=== PATIENT | female | born 1960 | race Caucasian/White ===

== ENCOUNTER → 2017-07-04 12:24 | Emergency (ER) | payer BC ==
[~2017-07-04 12:24] MED LIST: Ketorolac INJ* 30 MG/ML 1 ML VIAL IV ONE
--- NOTE | 2017-07-04 14:13 | RAD ---
INDICATION: Chest pain COMPARISON: None TECHNIQUE: An AP portable view obtained at 1357 hours is submitted. FINDINGS: Bones/Soft Tissues: There are no acute bony findings. Cardiomediastinal: The cardiomediastinal silhouette is normal. Lungs: There is airspace disease in left lung base consistent with infiltrate or atelectasis. Pleura: Suspect small left-sided effusion. Other: None IMPRESSION: AIRSPACE DISEASE LEFT LUNG BASE
[2017-07-04 14:26] LABS: Hematocrit 41 % (35-47); Mean Corpuscular HGB Conc 34 g/dl (31-36); Mean Corpuscular Hemoglobin 30 pg (27-31); Mean Corpuscular Volume 87 fL (80-97); Mean Platelet Volume 7 um3 (7.4-10.4); Red Cell Distribution Width 13 % (10.5-15); White Blood Count 12.3 10^3/ul (3.5-10.8)
[2017-07-04 14:38] LABS: Albumin 4.3 g/dL (3.2-5.2); BUN/Creatinine Ratio 12.5 (8-20); Calcium 9.3 mg/dL (8.6-10.3); EGFR African American 122.6 (>60); EGFR Non-African American 95.3 (>60); Globulin 2.9 g/dL (2-4); Potassium 3.4 mmol/L (3.5-5.0); Total Bilirubin 0.5 mg/dL (0.2-1.0); Total Protein 7.2 g/dL (6.4-8.9)
--- NOTE | 2017-07-04 16:37 | ED ---
Isael [place] Gabriel, scribed for Gerson oRberts MD on 07/04/17 at 1338 . HPI Chest Pain - HPI Summary HPI Summary: This patient is a 56 year old F presenting to [facility] with a chief complaint of CP since yesterday afternoon. She states the pain in her chest felt like heartburn but different. The patient rates the pain 8/10 in severity. She describes the pain as tight, achy, constant, and radiating into her back. Symptoms aggravated by lying flat and exertion. Symptoms alleviated by nothing. Pt has taken muscle relaxers and ibuprofen with no relief. Patient reports pain on inspiration, SOB, nausea, and diaphoresis. Patient denies trauma, cough, and edema. - History of Current Complaint Chief Complaint: EDChestPainROMI Time Seen by Provider: 07/04/17 13:23 Hx Obtained From: Patient Onset/Duration: Still Present Timing: Constant Current Severity: Moderate Pain Intensity: 8 Pain Scale Used: 0-10 Numeric Chest Pain Radiates: Yes Chest Pain Radiates To:: Back Aggravating Factor(s): Exertion, Position - lying Alleviating Factor(s): Nothing - Allergy/Home Medications Allergies/Adverse Reactions: Allergies Allergy/AdvReac Type Severity Reaction Status Date / Time No Known Allergies Allergy Verified 07/04/17 12:35 PMH/Surg Hx/FS Hx/Imm Hx Previously Healthy: No Endocrine/Hematology History: Denies: Hx Diabetes Cardiovascular History: Denies: Hx Coronary Artery Disease - Cancer History Hx Chemotherapy: No Hx Radiation Therapy: No Infectious Disease History: No Infectious Disease History: Denies: Traveled Outside the [place] in Last 30 Days - Family History Known Family History: Positive: Cardiac Disease, Hypertension, Diabetes, Other - hyperlipidemia - Social History Occupation: Employed Full-time Alcohol Use: None Substance Use Type: Reports: None Smoking Status (MU): Unknown if Ever Smoked Review of Systems Constitutional: Negative - trauma Positive: Skin Diaphoresis Positive: Chest Pain Positive: Shortness Of Breath, Other - pain on inspiration. Negative: Cough Positive: Nausea Negative: Edema All Other Systems Reviewed And Are Negative: Yes Physical Exam - Summary Physical Exam Summary: The patient is well-nourished in no acute distress and in no acute pain. The skin is warm and dry and skin color reflects adequate perfusion. HEENT: ~The head is normocephalic and atraumatic. The pupils are equal and reactive. The conjunctivae are clear and without drainage. ~Nares are patent and without drainage. ~Mouth reveals moist mucous membranes and the throat is without erythema and exudate. ~The external ears are intact. The ear canals are patent and without drainage. The tympanic membranes are intact. Neck is supple with full range of motion and non-tender. There are no carotid bruits. ~There is no neck vein distension. Respiratory: Chest is non-tender. ~Lungs are clear to auscultation and breath sounds are symmetrical and equal. Cardiovascular: Heart is regular rate and rhythm. ~There is no murmur or rub auscultated. ~~There is no peripheral edema and pulses are symmetrical and equal. Abdomen: The abdomen is soft and non-tender. ~There are normal bowel sounds heard in all four quadrants and there is no organomegaly palpated. Musculoskeletal: There is no back pain noted. ~Extremities are non-tender with full range of motion. ~There is good capillary refill. ~There is no peripheral edema or calf tenderness elicited. Neurological: Patient is alert and oriented to person, place and time. ~The patient has symmetrical motor strength in all four extremities. ~Cranial nerves are grossly intact. Deep tendon reflexes are symmetrical and equal in all four extremities. Psychiatric: The patient has an appropriate affect and does not exhibit any anxiety or depression. Triage Information Reviewed: Yes Vital Signs On Initial Exam: Initial Vitals Temp Pulse Resp BP Pulse Ox 99.8 F 104 18 176/93 100 07/04/17 12:32 07/04/17 12:32 07/04/17 12:32 07/04/17 12:32 07/04/17 12:32 Vital Signs Reviewed: Yes - Bock Coma Scale Coma Scale Total: 15 Diagnostics - Vital Signs Vital Signs Temp Pulse Resp BP Pulse Ox 07/04/17 12:32 99.8 F 104 18 176/93 100 - Laboratory Lab Results: Lab Results 07/04/17 07/04/17 07/04/17 Range/Units 14:14 14:14 14:14 WBC 12.3 H (3.5-10.8) 10^3/ul RBC 4.70 (4.0-5.4) 10^6/ul Hgb 14.0 (12.0-16.0) g/dl Hct 41 (35-47) % MCV 87 (80-97) fL MCH 30 (27-31) pg MCHC 34 (31-36) g/dl RDW 13 (10.5-15) % Plt Count 277 (150-450) 10^3/ul MPV 7 L (7.4-10.4) um3 Neut % (Auto) 81.1 (38-83) % Lymph % (Auto) 11.5 L (25-47) % Patrick % (Auto) 7.1 (1-9) % Eos % (Auto) 0.1 (0-6) % Baso % (Auto) 0.2 (0-2) % Absolute Neuts (auto) 10.0 H (1.5-7.7) 10^3/ul Absolute Lymphs (auto) 1.4 (1.0-4.8) 10^3/ul Absolute Monos (auto) 0.9 H (0-0.8) 10^3/ul Absolute Eos (auto) 0 (0-0.6) 10^3/ul Absolute Basos (auto) 0 (0-0.2) 10^3/ul Absolute Nucleated RBC 0.01 10^3/ul Nucleated RBC % 0.1 INR (Anticoag Therapy) 0.96 (0.89-1.11) D-Dimer, Quantitative < 200 (Less Than 230) ng/mL Sodium 135 (133-145) mmol/L Potassium 3.4 L (3.5-5.0) mmol/L Chloride 102 (101-111) mmol/L Carbon Dioxide 26 (22-32) mmol/L Anion Gap 7 (2-11) mmol/L BUN 8 (6-24) mg/dL Creatinine 0.64 (0.51-0.95) mg/dL Est GFR ( Amer) 122.6 (>60) Est GFR (Non-Af Amer) 95.3 (>60) BUN/Creatinine Ratio 12.5 (8-20) Glucose 110 H (70-100) mg/dL Lactic Acid (0.5-2.0) mmol/L Calcium 9.3 (8.6-10.3) mg/dL Total Bilirubin 0.50 (0.2-1.0) mg/dL AST 18 (13-39) U/L ALT 18 (7-52) U/L Alkaline Phosphatase 85 (34-104) U/L Troponin I 0.00 (<0.04) ng/mL Total Protein 7.2 (6.4-8.9) g/dL Albumin 4.3 (3.2-5.2) g/dL Globulin 2.9 (2-4) g/dL Albumin/Globulin Ratio 1.5 (1-3) 11/15/17 Range/Units 14:14 WBC (3.5-10.8) 10^3/ul RBC (4.0-5.4) 10^6/ul Hgb (12.0-16.0) g/dl Hct (35-47) % MCV (80-97) fL MCH (27-31) pg MCHC (31-36) g/dl RDW (10.5-15) % Plt Count (150-450) 10^3/ul MPV (7.4-10.4) um3 Neut % (Auto) (38-83) % Lymph % (Auto) (25-47) % Patrick % (Auto) (1-9) % Eos % (Auto) (0-6) % Baso % (Auto) (0-2) % Absolute Neuts (auto) (1.5-7.7) 10^3/ul Absolute Lymphs (auto) (1.0-4.8) 10^3/ul Absolute Monos (auto) (0-0.8) 10^3/ul Absolute Eos (auto) (0-0.6) 10^3/ul Absolute Basos (auto) (0-0.2) 10^3/ul Absolute Nucleated RBC 10^3/ul Nucleated RBC % INR (Anticoag Therapy) (0.89-1.11) D-Dimer, Quantitative (Less Than 230) ng/mL Sodium (133-145) mmol/L Potassium (3.5-5.0) mmol/L Chloride (101-111) mmol/L Carbon Dioxide (22-32) mmol/L Anion Gap (2-11) mmol/L BUN (6-24) mg/dL Creatinine (0.51-0.95) mg/dL Est GFR ( Amer) (>60) Est GFR (Non-Af Amer) (>60) BUN/Creatinine Ratio (8-20) Glucose (70-100) mg/dL Lactic Acid 1.0 (0.5-2.0) mmol/L Calcium (8.6-10.3) mg/dL Total Bilirubin (0.2-1.0) mg/dL AST (13-39) U/L ALT (7-52) U/L Alkaline Phosphatase (34-104) U/L Troponin I (<0.04) ng/mL Total Protein (6.4-8.9) g/dL Albumin (3.2-5.2) g/dL Globulin (2-4) g/dL Albumin/Globulin Ratio (1-3) Result Diagrams: 07/04/17 14:14 07/04/17 14:14 Lab Statement: Any lab studies that have been ordered have been reviewed, and results considered in the medical decision making process. - Radiology CXR Radiology Interpretation Completed By: Radiologist - AIRSPACE DISEASE LEFT LUNG BASE. ED physician has reviewed this radiology report and agrees - EKG 12:43 Cardiac Rate: NL EKG Rhythm: Sinus Rhythm - 97 BPM EKG Interpretation: Horizontal axis Chest Pain Course/Dx - Course Course Of Treatment: Ms. Angel presented C/O pleuritic epigastric CP which started yesterday. She has had flashes of diaphoresis and chills. She was found to have a borderline tachycardia, infiltrate in the LLL on CXR and a slight leukocytosis. She has a coworker recently diagnosed with pneumonia. - Diagnoses Provider Diagnoses: PNA (pneumonia) Discharge - Discharge Plan Condition: Stable Disposition: HOME Patient Education Materials: Pneumonitis (ED) Forms: *Work Release Referrals: Deana Martinez MD [Primary Care Provider] - Additional Instructions: Follow up with your primary care provider in 3-4 days. RETURN TO THE EMERGENCY DEPARTMENT FOR CHANGING OR WORSENING SYMPTOMS. The documentation as recorded by the Isael lucas Gabriel accurately reflects the service I personally performed and the decisions made by , Gerson Roberts MD.
[2017-07-04 16:42] VITALS: BP 131/86
== END | disposition home or self-care (01) ==
LOC: ED 12:24
DX: J18.9 Pneumonia, unspecified organism (principal); R07.9 Chest pain, unspecified; R06.02 Shortness of breath; R11.0 Nausea
CPT/HCPCS: 36415; 71010; 80053; 83605; 84484; 85025; 85379; 85610; 93005; 96374; 99282; J1885

== ENCOUNTER 2019-03-07 14:37 | Emergency (ER) | payer BC ==
[2019-03-07 14:59] VITALS: BP 137/87
--- NOTE | 2019-03-07 16:33 | UC ---
Knee Pain HPI - HPI Summary HPI Summary: Complaining of worsening pain in her right knee over the past month or so. States that it is clicking and occasionally giving out on her. No recent injury but states she did fall about 5 months ago. No broken bones. No numbness or tingling. Mild swelling but no redness or heat. - History of Current Complaint Chief Complaint: UCLowerExtremity Stated Complaint: RT KNEE PAIN Time Seen by Provider: 03/07/19 15:55 Hx Obtained From: Patient Onset/Duration: Gradual Onset, Lasting Weeks, Still Present Severity Initially: Moderate Severity Currently: Moderate Pain Intensity: 1 Pain Scale Used: 0-10 Numeric Character: Sharp Aggravating Factor(s): Weight Bearing Alleviating Factor(s): Rest Associated Signs And Symptoms: Positive: Swelling. Negative: Redness, Bruising , Numbness, Tingling Able to Bear Weight: Yes - Allergies/Home Medications Allergies/Adverse Reactions: Allergies Allergy/AdvReac Type Severity Reaction Status Date / Time No Known Allergies Allergy Verified 03/07/19 14:55 Home Medications: Home Medications Ascorbic Acid/Multivit-Min [Emergen-C 1,000 mg Packet] 1 packet PO DAILY [History Confirmed 03/07/19] Ibuprofen 200 mg PO ONCE PRN 03/07/19 [History Confirmed 03/07/19] Peppermint Oil [Peppermint] 1 dose PO QPM PRN 03/07/19 [History Confirmed ] PMH/Surg Hx/FS Hx/Imm Hx Other Cancer History: SKIN CANCER - Surgical History Surgical History: Yes Surgery Procedure, Year, and Place: Moh's procedure under right eye-2012 [place]. Bladder sling-[place]. Partial Hysterectomy-1984. Colonoscopy - Family History Known Family History: Positive: Cardiac Disease, Hypertension, Diabetes, Other - hyperlipidemia - Social History Alcohol Use: None Substance Use Type: None Smoking Status (MU): Never Smoked Tobacco Review of Systems All Other Systems Reviewed And Are Negative: Yes Constitutional: Positive: Negative Skin: Positive: Negative Respiratory: Positive: Negative Cardiovascular: Positive: Negative Gastrointestinal: Positive: Negative Musculoskeletal: Positive: Arthralgia, Edema. Negative: Decreased ROM Physical Exam Triage Information Reviewed: Yes Appearance: Well-Appearing, No Pain Distress, Well-Nourished Vital Signs: Initial Vital Signs Temp 98 F 03/07/19 14:51 Pulse 68 07/19/19 14:51 Resp 18 03/07/19 14:51 BP 137/87 03/07/19 14:51 Pulse Ox 98 03/07/19 14:51 Vital Signs Reviewed: Yes Eyes: Positive: Conjunctiva Clear ENT: Positive: Hearing grossly normal Neck: Positive: Supple Respiratory: Positive: No respiratory distress, No accessory muscle use Cardiovascular: Positive: Pulses Normal Abdomen Description: Positive: Soft Musculoskeletal: Positive: ROM Intact, No Edema, Other: - RIGHT KNEE: NO JOINT LINE TENDERNESS OR TENDERNESS OVER ANY BONY PROMINENCES. MCL AND LCL INTACT TO STRESS TESTING. NEG LACHMANS. NEG DRAWERS SIGNS. NEG MCMURRAYS. NO TENDERNESS OVER PATELLAR LIGAMENT OR QUADRICEPS TENDON. Neurological: Positive: Alert Psychological: Positive: Age Appropriate Behavior Skin: Negative: Rashes Diagnostics - Radiology RIGHT KNEE XRAYS Radiology Interpretation Completed By: Radiologist Summary of Radiographic Findings: Osteoarthritis most prominent at the patellofemoral joint where it is moderately severe. Minimal joint effusion. Knee Pain Course/Dx - Course Course Of Treatment: X-RAY SHOWS SOME WEAR AND TEAR ARTHRITIS BUT NO ACUTE INJURY. PATIENT WOULD LIKELY BENEFIT FROM MORE ADVANCED IMAGING SUCH AN MRI. KNEE IMMOBILIZER PROVIDED FOR SOME COMPRESSION AND SUPPORT. INSTRUCTED HER TO BE SURE TO GO THROUGH SLOW STRETCHING AND RANGE OF MOTION EXERCISES DAILY SO SHE DOES NOT STIFFEN UP AND MAKE THE DISCOMFORT WORSE. [id number] MEDICATIONS NEEDED FOR DISCOMFORT. SHE WILL CALL ORTHOPEDICS TO SCHEDULE A FOLLOW-UP APPOINTMENT WITHIN THE WEEK. - Differential Dx/Diagnosis Provider Diagnosis: Internal derangement of right knee Discharge - Sign-Out/Discharge Documenting (check all that apply): Patient Departure All imaging exams completed and their final reports reviewed: Yes - Discharge Plan Condition: Stable Disposition: HOME Patient Education Materials: Knee Pain (ED) Referrals: Jae Bryant MD [Medical Doctor] - 1 Week Deana Martinez MD [Primary Care Provider] - If Needed Additional Instructions: XRAY TODAY SHOWS OSTEOARTHRITIS MOST PROMINENT AT THE PATELLOFEMORAL JOINT WHERE IT IS MODERATELY SEVERE AND A MINIMAL JOINT EFFUSION. FOLLOW-UP WITH YOUR PCP OR ORTHO. YOU MAY BENEFIT FROM MORE ADVANCED IMAGING. OTC IBUPROFEN OR ALEVE NEEDED FOR DISCOMFORT. REST, ICE, ELEVATE. KNEE IMMOBILIZER NEEDED FOR COMPRESSION AND SUPPORT. BE SURE TO GO THROUGH SLOW RANGE OF MOTION AND STRETCHING EXERCISES DAILY YOU ARE ABLE TO PREVENT STIFFENING UP AND MAKING THE DISCOMFORT WORSE. SUSPECTED INTERNAL KNEE INJURY: The examiner of your injured knee suspects an internal injury to the cartilage or internal ligaments. This must be further investigated by an network desktop support specialist. The knee should be protected, ice packed, and elevated while awaiting your follow-up exam by the orthopedist. If there is severe swelling, severe pain, or any new symptoms while awaiting your exam, you should call the orthopedist. (If he/she is unavailable, call us or return for re-examination.) - Billing Disposition and Condition Condition: STABLE Disposition: Home
== END 2019-03-07 16:48 | disposition home or self-care (01) ==
LOC: UCEAST 14:37
DX: M23.91 Unspecified internal derangement of right knee (principal)
CPT/HCPCS: 99212; G0463

== ENCOUNTER 2019-10-28 10:36 | Emergency (ER) | payer BC ==
--- NOTE | 2019-10-28 10:57 | ED ---
Adult Trauma - HPI Summary HPI Summary: This patient is a 58 y/o female presenting to [facility] referred by [facility] for upper back pain s/p fall this morning. Patient reports she was walking down a walkway when she slipped and fell straight on her back. She notes her feet went up and struck her upper back. Denies head strike or LOC. Patient went to [facility] today and had x-rays done that resulted in bony fractures of thorax. 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 She denies any neck pain, urinary or fecal dysfunction, numbness, tingling, or weakness in upper extremities or lower extremities. Patient currently rates her upper back pain 5/ 10 in severity. Denies any PMHx. Denies tobacco, drug, or alcohol use. Home Medications Medication Instructions Recorded Confirmed Type Ascorbic Acid/Multivit-Min 1 packet PO DAILY 03/07/19 10/28/19 History [Emergen-C 1,000 mg Packet] - History of Current Complaint Chief Complaint: EDFall Stated Complaint: BROKE VERTEBRAE PER PT Hx Obtained From: Patient Mechanism of Injury: Fall Ambulatory at the Scene: Yes Loss of Consciousness: no loss of consciousness Onset/Duration: Started Hours Ago, Still Present Onset of Pain: Hours Current Severity: Moderate Pain Intensity: 5 Pain Scale Used: 0-10 Numeric Location: Back - upper Aggravating Factor(s): Nothing Alleviating Factor(s): Nothing Associated Signs & Symptoms: Negative: Fever, Loss of Consciousness, Other: - NEGATIVE: urinary or fecal dysfunction, numbness, tingling or weakness in UE or LE. - Allergy/Home Medications Allergies/Adverse Reactions: Allergies Allergy/AdvReac Type Severity Reaction Status Date / Time No Known Allergies Allergy Verified 10/28/19 10:47 Home Medications: Home Medications Ascorbic Acid/Multivit-Min [Emergen-C 1,000 mg Packet] 1 packet PO DAILY [History Confirmed 10/28/19] HYDROcodone/ACETAMIN 5-325 MG* [Wellesley 5-325 TAB*] 1 tab PO Q6H PRN #10 tab MDD 4 10/28/19 [Rx] Ibuprofen TAB* [Motrin TAB* 600 MG] 600 mg PO Q8H PRN #30 tab 10/28/19 [Rx] PMH/Surg Hx/FS Hx/Imm Hx Endocrine/Hematology History: Denies: Hx Diabetes Cardiovascular History: Denies: Hx Coronary Artery Disease, Other Cardiovascular Problems/Disorders Respiratory History: Denies: Other Respiratory Problems/Disorders GI History: Reports: Hx Gastroesophageal Reflux Disease - no meds at present, drinks peppermint water, Hx Hiatal Hernia Denies: Other GI Disorders History: Reports: Other Problems/Disorders - Urinary incontinence, bladder sling 2014, History of UTIs-none recent Musculoskeletal History: Denies: Other Musculoskeletal History Sensory History: Denies: Hx Cataracts, Hx Contacts or Glasses, Hx Glaucoma, Hx Hearing Aid Opthamlomology History: Denies: Hx Cataracts, Hx Contacts or Glasses, Hx Glaucoma Neurological History: Denies: Other Neuro Impairments/Disorders - Cancer History Cancer Type, Location and Year: skin ca Hx Chemotherapy: No Hx Radiation Therapy: No - Surgical History Surgical History: Yes Surgery Procedure, Year, and Place: Moh's procedure under right eye-2012 [place]. Bladder sling-[place] in 1994. Partial Hysterectomy-1984. Colonoscopy Hx Anesthesia Reactions: Yes - Nausea and acid relux Infectious Disease History: No Infectious Disease History: Denies: Traveled Outside the [place] in Last 30 Days - Family History Known Family History: Positive: Cardiac Disease, Hypertension, Diabetes, Other - hyperlipidemia - Social History Alcohol Use: None Substance Use Type: Reports: None Smoking Status (MU): Never Smoked Tobacco Review of Systems Negative: Fever Negative: incontinence - urinary or fecal Musculoskeletal: Other - POSITIVE: upper back pain Negative: Other - NEGATIVE: neck pain Negative: Weakness, Paresthesia, Numbness All Other Systems Reviewed And Are Negative: Yes Physical Exam - Summary Physical Exam Summary: VITAL SIGNS: Reviewed. GENERAL: Patient is a well-developed and nourished female who is lying comfortable in the stretcher. Patient is not in any acute respiratory distress. HEAD AND FACE: No signs of trauma. No ecchymosis, hematomas or skull depressions. No sinus tenderness. EYES: PERRLA, EOMI x 2, No injected conjunctiva, no nystagmus. EARS: Hearing grossly intact. Ear canals and tympanic membranes are within normal limits. MOUTH: Oropharynx within normal limits. NECK: Supple, trachea is midline, no adenopathy, no JVD, no carotid bruit, no c- spine tenderness, neck with full ROM. CHEST: Symmetric, no tenderness at palpation LUNGS: Clear to auscultation bilaterally. No wheezing or crackles. CVS: Regular rate and rhythm, S1 and S2 present, no murmurs or gallops appreciated. ABDOMEN: Soft, non-tender. No signs of distention. No rebound, no guarding, and no masses palpated. Bowel sounds are normal. MSK: FROM in all major joints, no edema, no cyanosis or clubbing. Positive tenderness in the thoracic spine. NEURO: Alert and oriented x 3. No acute neurological deficits. Speech is normal and follows commands. SKIN: Dry and warm Triage Information Reviewed: Yes Vital Signs On Initial Exam: Initial Vitals Temp Pulse Resp BP Pulse Ox 98.0 F 72 16 158/95 99 10/28/19 10:42 10/28/19 10:42 10/28/19 10:42 10/28/19 10:42 10/28/19 10:42 Vital Signs Reviewed: Yes Procedures - Sedation Patient Received Moderate/Deep Sedation with Procedure: No Diagnostics - Vital Signs Vital Signs Temp Pulse Resp BP Pulse Ox 10/28/19 10:42 98.0 F 72 16 158/95 99 - Laboratory Lab Statement: Any lab studies that have been ordered have been reviewed, and results considered in the medical decision making process. - Radiology Thoracic spine XR Radiology Interpretation Completed By: Radiologist Summary of Radiographic Findings: IMPRESSION: 1. Osteopenia. 2. Scoliosis. 3. Degenerative disc disease and osteoarthritis. 4. Chronic compression deformity of T12. Dr. Pepe has reviewed this report. Lumbar spine XR Radiology Interpretation Completed By: Radiologist Summary of Radiographic Findings: IMPRESSION: 1. Osteopenia. 2. Scoliosis. 3. Degenerative disc disease and osteoarthritis. 4. Chronic compression deformity of T12. Dr. Pepe has reviewed this report. Re-Evaluation - Re-Evaluation First Eval Re-Evaluation Time: 12:14 Comment: Reviewed results with patient. She will be discharged home. Adult Trauma Course/Dx - Course Assessment/Plan: This patient is a 58 y/o female presenting to [facility] referred by [facility] for upper back pain s/p fall this morning. Patient reports she was walking down a walkway when she slipped and fell straight on her back. She notes her feet went up and struck her upper back. Denies head strike or LOC. Patient went to [facility] today and had x-rays done that resulted in bony fractures of thorax. 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 She denies any neck pain, urinary or fecal dysfunction, numbness, tingling, or weakness in upper extremities or lower extremities. Patient currently rates her upper back pain 5/10 in severity. Denies any PMHx. Denies tobacco, drug, or alcohol use. Denies any urinary or fecal dysfunction. Denies any upper or LE numbness or tingling. L and T spine x-ray IMPRESSION: 1. OSTEOPENIA. 2. SCOLIOSIS. 3. DEGENERATIVE DISC DISEASE AND OSTEOARTHRITIS. 4. CHRONIC COMPRESSION DEFORMITY OF T12. X-ray report shows that the patient has a chronic T12 vertebral fracture. There is no acute fracture. Therefore the patient will be given ibuprofen and Wellesley for the pain. Patient will be discharged home with follow-up from her primary care physician. At this point I discussed all the findings and test results with the patient. Patient was instructed to return to the emergency room immediately if any of the symptoms return or worsen. Patient understands and agrees. Patient is able to ambulate freely w/o aid or limp in the ER. Plan of care was discussed with the patient and patient understands and agrees. All questions were answered at patient satisfaction. There were no further complaints or concerns. Neurological exam before discharge: Patient is alert and oriented x 3. No acute neurological deficits. Patient is hemodynamically stable. Patient is to follow up with her primary care physician in the next 2 3 days. She understands and agrees. - Diagnoses Provider Diagnoses: Thoracic vertebral fracture Discharge ED - Sign-Out/Discharge Documenting (check all that apply): Patient Departure - Discharge home - Discharge Plan Condition: Stable Disposition: HOME Prescriptions: HYDROcodone/ACETAMIN 5-325 MG* [[place] 5-325 TAB*] 1 tab PO Q6H PRN #10 tab MDD 4 PRN Reason: Pain - Moderate Ibuprofen TAB* [Motrin TAB* 600 MG] 600 mg PO Q8H PRN #30 tab PRN Reason: Pain - Moderate Patient Education Materials: Vertebral Compression Fracture (ED) Forms: *Work Release Referrals: Yue Zaman MD [Primary Care Provider] - Additional Instructions: FOLLOW UP WITH YOUR PRIMARY CARE PROVIDER IN 2-3 DAYS. RETURN TO THE ED FOR ANY NEW OR WORSENING SYMPTOMS. - Attestation Statements Document Initiated by Scribe: Yes Documenting Scribe: Maria Fernanda Hu Provider For Whom Scribe is Documenting (Include Credential): Jhon Pepe MD Scribe Attestation: I, Maria Fernanda uH, scribed for Jhon Pepe MD on 10/28/19 at 1220. Status of Scribe Document: Ready
[2019-10-28] MEDS ORDERED: HYDROcodone/ACETAMIN 5-325 MG* 1 TAB PO ONE (12:11)
[2019-10-28 12:28] VITALS: BP 140/92
== END 2019-10-28 12:27 | disposition home or self-care (01) ==
LOC: ED 10:36
DX: S22.089A Unspecified fracture of T11-T12 vertebra, initial encounter for closed fracture (principal); M51.34 Other intervertebral disc degeneration, thoracic region; M54.9 Dorsalgia, unspecified; Z85.828 Personal history of other malignant neoplasm of skin; M85.80 Other specified disorders of bone density and structure, unspecified site; K21.9 Gastro-esophageal reflux disease without esophagitis; W01.0XXA Fall on same level from slipping, tripping and stumbling without subsequent striking against object, initial encounter; Y92.9 Unspecified place or not applicable; M41.9 Scoliosis, unspecified
CPT/HCPCS: 72070; 72100; 99282

== ENCOUNTER 2024-08-05 13:02 | Inpatient (IN) ==
[2024-08-05 14:45] LABS: ABS Eosinophils 0.1 10^3/uL (0.0-0.5); ABS Monocytes 0.3 10^3/uL (0.0-0.9); ABS Neutrophils 2.4 10^3/uL (1.5-7.6); Eosinophil % 1.8 %; Hematocrit 21.7 % (35-45); Hemoglobin 6.7 g/dL (11.5-14.3); Lymphocyte % 26.6 %; Mean Corpuscular Hemoglobin 20.4 pg (27-33); Mean Corpuscular Hgb Conc 30.8 g/dL (31-36); Mean Corpuscular Volume 66.2 fL (80-97); Mean Platelet Volume 7.3 fL (7.5-11.2); Platelet Count 373 10^3/uL (150-450); Red Blood Count 3.28 10^6/uL (3.63-4.92); Red Cell Distribution Width 17.2 % (12-17); White Blood Count 3.9 10^3/uL (3.8-11.8)
[2024-08-05] MEDS: Lactated Ringers 1000 ml BAG IV.FLUID IV ONE (15:17)
[2024-08-05 15:22] LABS: Albumin 4.1 g/dL (3.2-5.2); Albumin/Globulin Ratio 1.7 (1-3); C Reactive Protein 1.15 mg/L (<8.01); Calcium 8.6 mg/dL (8.6-10.3); Creatinine, Serum 0.56 mg/dL (0.51-0.95); Globulin 2.4 g/dL (2-4); Potassium 3.7 mmol/L (3.5-5.0); Total Bilirubin 0.2 mg/dL (0.2-1.0); Total Protein 6.5 g/dL (6.4-8.9); eGFR CKD-EPI 101.2 (>60)
[2024-08-05] MEDS: Ondansetron 4 mg VIAL 2 MG/ML 2 ml VIAL IV ONE (18:18)
[2024-08-05] MEDS: Lactated Ringers 1000 ml BAG 1,000 ML IV ONE (18:18)
[2024-08-05] MEDS: Pantoprazole VIAL 40 MG VIAL IV ONE (18:18)
[2024-08-05] MEDS ORDERED: Acetaminophen IV 1 GM/100ML 1,000 MG/100 ML BAG IV PRN (19:20)
[2024-08-05 19:23] LABS: Hematocrit 20.1 % (35-45); Hemoglobin 6.4 g/dL (11.5-14.3)
[2024-08-05 20:36] LABS: Urine Appearance Clear; Urine Bilirubin Negative (Negative); Urine Blood Negative (Negative); Urine Color Colorless; Urine Glucose Negative (Negative); Urine Ketones Negative (Negative); Urine Nitrite Negative (Negative); Urine Protein Negative (Negative); Urine Specific Gravity 1.007 (1.002-1.030); Urine Urobilinogen Negative (Negative)
[2024-08-05 20:46] LABS: Urine Bacteria 2+ (Absent); Urine Red Blood Cell Trace(0-2/hpf) (Absent); Urine Squamous Epithelial Cell Present (Absent); Urine White Blood Cell 3+(>20/hpf) (Absent)
[2024-08-05 20:47] LABS: Urine Transitional Epithelial Present (Absent)
[2024-08-05] MEDS: Iohexol 350 (CONTRAST) 500 ML MDV IV ONE (21:29)
[2024-08-05 21:58] LABS: Ferritin 3.2 ng/mL (11-307)
[2024-08-05 22:40] LABS: INR 1.03 (0.85-1.14)
[2024-08-05 23:57] LABS: Hematocrit 27.6 % (35-45)
[2024-08-06 06:09] LABS: ABS Lymphocytes 1.4 10^3/uL (1.0-4.8); ABS Monocytes 0.4 10^3/uL (0.0-0.9); ABS Neutrophils 3.5 10^3/uL (1.5-7.6); Eosinophil % 0.7 %; Hematocrit 25.9 % (35-45); Hemoglobin 8.6 g/dL (11.5-14.3); Lymphocyte % 26.5 %; Mean Corpuscular Hgb Conc 33.3 g/dL (31-36); Mean Platelet Volume 7.3 fL (7.5-11.2); Nucleated Red Blood Cells % 0.1 %/100WBC (0.0-0.8); Platelet Count 311 10^3/uL (150-450); Red Blood Count 3.76 10^6/uL (3.63-4.92); White Blood Count 5.4 10^3/uL (3.8-11.8)
[2024-08-06 06:29] LABS: Albumin 3.7 g/dL (3.2-5.2); Albumin/Globulin Ratio 1.9 (1-3); Calcium 8.5 mg/dL (8.6-10.3); Creatinine, Serum 0.56 mg/dL (0.51-0.95); Potassium 3.7 mmol/L (3.5-5.0); Total Bilirubin 0.9 mg/dL (0.2-1.0); Total Protein 5.7 g/dL (6.4-8.9); eGFR CKD-EPI 101.2 (>60)
[2024-08-06] MEDS: Pantoprazole VIAL 40 MG VIAL IV SCH (07:45)
[2024-08-06] MEDS: Ferric Gluconate IV 250 MG in NS 0.9% 250 ml 200 ML IVPB SCH (08:28)
[2024-08-06 09:27] LABS: Magnesium 2.1 mg/dL (1.9-2.7)
[2024-08-06] MEDS: Ondansetron 4 mg VIAL 2 MG/ML 2 ml VIAL IV PRN (13:43)
[2024-08-06] MEDS ORDERED: fentaNYL 100 mcg/2 ml 50 MCG/ML VIAL ONE (14:47)
[2024-08-06] MEDS ORDERED: Midazolam 10 mg/10 ml VIAL 1 mg/ml 10 ml VIAL (10 mg) ONE (14:47)
[2024-08-06] MEDS: PEG 3000 GI LAVAGE 1 GALLON PO ONE (16:52)
[2024-08-06] MEDS ORDERED: Prochlorperazine 5 mg/ml 2 ml VIAL (10 mg) IV PRN (20:29)
[2024-08-07] MEDS: Ondansetron 4 mg VIAL 2 MG/ML 2 ml VIAL IV PRN (01:50)
[2024-08-07 06:26] LABS: ALT 12 U/L (7-52); AST 15 U/L (13-39); Albumin 3.6 g/dL (3.5-5.7); Albumin/Globulin Ratio 1.8 (1-3); Alkaline Phosphatase 72 U/L (35-149); Anion Gap 6 mmol/L (2-16); Blood Urea Nitrogen 6 mg/dL (6-24); CO2 Carbon Dioxide 28 mmol/L (22-32); Calcium 8.6 mg/dL (8.6-10.3); Chloride 106 mmol/L (101-111); Creatinine, Serum 0.58 mg/dL (0.51-0.95); Glucose 85 mg/dL (70-100); Potassium 3.1 mmol/L (3.5-5.0); Sodium 140 mmol/L (135-145); Total Bilirubin 0.5 mg/dL (0.2-1.0); Total Protein 5.6 g/dL (6.4-8.9); eGFR CKD-EPI 100.4 (>60)
[2024-08-07 06:31] LABS: ABS Eosinophils 0.1 10^3/uL (0.0-0.5); ABS Lymphocytes 1.5 10^3/uL (1.0-4.8); ABS Monocytes 0.5 10^3/uL (0.0-0.9); ABS Neutrophils 3.6 10^3/uL (1.5-7.6); ABS Nucleated RBC 0.01 10^3/ul; Eosinophil % 2.2 %; Hematocrit 26.2 % (35-45); Hemoglobin 8.4 g/dL (11.5-14.3); Lymphocyte % 26.6 %; Mean Corpuscular Hemoglobin 22.4 pg (27-33); Mean Corpuscular Hgb Conc 31.9 g/dL (31-36); Mean Corpuscular Volume 70.3 fL (80-97); Mean Platelet Volume 7.5 fL (7.5-11.2); Nucleated Red Blood Cells % 0.1 %/100WBC (0.0-0.8); Platelet Count 289 10^3/uL (150-450); Red Blood Count 3.73 10^6/uL (3.63-4.92); Red Cell Distribution Width 19.3 % (12-17); White Blood Count 5.7 10^3/uL (3.8-11.8)
[2024-08-07] MEDS ORDERED: KCL 10 MEQ/50 ML IVPREMIX 10 MEQ/50 ML BAG IV SCH (10:39)
[2024-08-07] MEDS: KCL 20 MEQ/100 ML IVPREMIX 20 MEQ/100 ML BAG IV ONE (11:12)
[2024-08-07] MEDS: KCL 10 MEQ/50 ML IVPREMIX 10 MEQ/50 ML BAG IV ONE (11:19)
[2024-08-07] MEDS ORDERED: Midazolam 5 mg/5 ml VIAL 1 mg/ml 5 ml VIAL (5 mg) ONE (15:41)
[2024-08-07] MEDS ORDERED: fentaNYL 100 mcg/2 ml 50 MCG/ML VIAL ONE (15:41)
[2024-08-07] MEDS: Potassium Chlor 20 meq TAB.ER PO ONE (17:09)
[2024-08-07 17:39] LABS: TSH Ultra Thyroid Stim Horm 1.75 mcIU/mL (0.34-5.60)
[2024-08-07 17:50] LABS: Folate > 20.00 ng/mL (5.90-24.80)
[2024-08-07 17:51] VITALS: BP 134/68
[2024-08-07 17:51] LABS: Vitamin B12 1250 pg/mL (180-914)
== END 2024-08-07 19:50 | disposition home or self-care (01) | DRG 379 ==
LOC: ED 13:02 → EDHOLD 13:02 → SUATTDRO 19:13 → SSU 21:38
PROVIDERS: ADMIT Student in an Organized Health Care Education/Training Program; ATTEND Internal Medicine